=== PATIENT | male | born 1940 | race Caucasian/White ===

== ENCOUNTER 2020-01-08 13:08 | Emergency (ER) | payer MEDICARE, BC ==
[2020-01-08 13:30] VITALS: BP 130/69
--- NOTE | 2020-01-08 14:43 | ER Document Report ---
Entered by JACQUELINE ANTHONY SCRIBE 01/08/20 1348 Acting as scribe for:JERROD JEFFERS MD ED Head/Face/Scalp Injury - General Chief Complaint: Head Injury without LOC Stated Complaint: HEAD INJURY Time Seen by Provider: 01/08/20 13:35 Primary Care Provider: MICAELA PARRA MD [Primary Care Provider] - Follow up as needed Mode of Arrival: Ambulatory Information source: Patient Notes: This 79 year old male patient presents to the emergency department today with complaints of a hammer falling off a ladder, striking him on the top of the head. Patient states he was using the ladder and ran out of nails, he was climbing down to get more nails and the hammer fell approximately 4 to 5 feet before striking him in the top of the head. 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 He did not lose consciousness and has no symptoms but was concerned due to prior subarachnoid hemorrhage. TRAVEL OUTSIDE OF THE [place] IN LAST 30 DAYS: No - Related Data Allergies/Adverse Reactions: No Known Allergies Allergy (Verified 04/26/15 15:46) Past Medical History - General Information source: Patient - Social History Smoking Status: Never Smoker Cigarette use (# per day): No Frequency of alcohol use: None Drug Abuse: None Lives with: Family Family History: Reviewed & Not Pertinent Patient has homicidal ideation: No - Past Medical History Cardiac Medical History: Reports: Hx Hypercholesterolemia, Hx Hypertension Neurological Medical History: Reports: Hx Cerebrovascular Accident - Subarachnoid hemorrhage with INTERIOR WALL ASSEMBLER shunt placement for drainage Malignancy Medical History: Reports Hx Prostate Cancer Past Surgical History: Reports: Hx Neurologic Surgery - INTERIOR WALL ASSEMBLER shunt placement for subarachnoid hemorrhage, Hx Orthopedic Surgery - L ankle - Immunizations Hx Diphtheria, Pertussis, Tetanus Vaccination: Yes Review of Systems - Review of Systems Constitutional: No symptoms reported EENT: No symptoms reported Cardiovascular: No symptoms reported Respiratory: No symptoms reported Gastrointestinal: No symptoms reported Genitourinary: No symptoms reported Male Genitourinary: No symptoms reported Musculoskeletal: No symptoms reported Skin: No symptoms reported Hematologic/Lymphatic: No symptoms reported Neurological/Psychological: See HPI, Other - hit in the head with a hammer. denies: Lost consciousness -: Yes All other systems reviewed and negative Physical Exam - Vital signs Vitals: Temp Pulse Resp BP Pulse Ox 98.2 F 53 L 18 130/69 H 98 01/08/20 13:29 01/08/20 13:01/08/20 13:01/08/20 13:01/08/20 13:29 - Notes Notes: Physical Exam: General: Alert, appears well. HEENT: Normocephalic. PERRL. Extraocular movements intact. Oropharynx clear. Top front head just to the right of the midline there are superficial abrasions, contusion, and swelling over the area of where INTERIOR WALL ASSEMBLER shunt was placed. Neck: Supple. Non-tender. Respiratory: No respiratory distress. Clear and equal breath sounds bilaterally. Cardiovascular: Regular rate and rhythm. Abdominal: Normal Inspection. Non-tender. No distension. Normal Bowel Sounds. Back: No gross abnormalities. Extremities: Moves all four extremities. Upper extremities: Normal inspection. Normal ROM. Lower extremities: Normal inspection. No edema. Normal ROM. Neurological: Normal cognition. AAOx4. Normal speech. Psychological: Normal affect. Normal Mood. Skin: Warm. Dry. Normal color. Course - Re-evaluation Re-evalutation: 01/08/20 15:[address] findings with the patient and his spouse. He did request that I remove the sutures from his left index finger that were placed about 5 days ago if I thought it would be okay. The wound looks like it is healing nicely. I told him that if he would be willing to put some duct tape around the fingertip to protect it for a few more days then removing the sutures today would be okay. - Vital Signs Vital signs: Temp Pulse Resp BP Pulse Ox 98.2 F 53 L 18 130/69 H 98 01/08/20 13:29 01/08/20 13:29 01/08/20 13:01/08/20 13:01/08/20 13:29 - Diagnostic Test Radiology reviewed: Image reviewed, Reports reviewed - CT scan of the head shows stable chronic changes with that acute intracranial process. Stable position of a left parietal approach ventriculostomy catheter. No evidence of tubing discontinuity in the visualized portions. Discharge - Discharge Clinical Impression: Contusion of scalp Qualifiers: Encounter type: initial encounter Qualified Code(s): S00.03XA - Contusion of scalp, initial encounter Condition: Stable Disposition: HOME, SELF-CARE Additional Instructions: Abrasions An abrasion is a scraping injury of the skin. Some scarring may result. The seriousness of an abrasion is not always obvious at first. Hidden tissue damage may be present and infection may occur despite proper care. Complete healing may take from ten days to as long as a month. The healing time depends on the depth of the abrasion, and on the amount of crushing of unde rlying tissues from the injury. Keep the wound and dressing clean. Do not shower or bathe the area until okayed by the doctor. If the dressing gets wet, remove it and blot the wound dry, then reapply a clean dressing. Dressings should be changed every day. Sunscreen should be used for six months after the skin is healed. If any signs of infection occur (swelling, redness, increasing tenderness, red streaks, profuse purulent drainage from the abrasion, tender lumps in the armpit or groin above the abrasion, or fever), see the doctor immediately. Contusion Your injury has resulted in a contusion -- a crushing of the deep tissues. No injury to important structures was detected during the physician's exam. Contusions vary in the amount of pain they cause, and in the length of time required for healing. Typically, the area will become bruised, and will remain painful to touch for two or three weeks. However, most patients are back to working and playing within a few days. After the initial period of rest and cold-packs, your symptoms (together with the doctor's recommendations) will determine how rapidly you can get back to full activity. Usually this means "do what feels okay, but don't do things that hurt." If re-examination was recommended, it's important to follow up as instructed. Call the doctor or return any time if pain increases, if swelling becomes severe, if you develop numbness or weakness in an injured extremity, or if any other alarming symptoms occur. Referrals: MICAELA PARRA MD [Primary Care Provider] - Follow up as needed I personally performed the services described in the documentation, reviewed and edited the documentation which was dictated to the scribe in my presence, and it accurately records my words and actions.
--- NOTE | 2020-01-08 14:48 | RADIOLOGY REPORT (SQ) ---
EXAM DESCRIPTION: CT HEAD WITHOUT IMAGES COMPLETED DATE/TIME: 01/08/2020 2:14 pm REASON FOR STUDY: hammer fell onto head COMPARISON: 04/26/2015 TECHNIQUE: Axial images acquired through the brain without intravenous contrast. Images reviewed wi th bone, brain and subdural windows. Additional sagittal and coronal reconstructions were generated. Images stored on PACS. All CT scanners at this facility use dose modulation, iterative reconstruction, and/or weight based d osing when appropriate to reduce radiation dose to as low as reasonably achievable (ALARA). [facility]: Dose Right [facility]: CareDose [facility]: Dose Right [facility]: Teradose 4D [facility]: Smart [employer] RADIATION DOSE: CT Rad equipment meets quality standard of care and radiation dose reduction techniq ues were employed. CTDIvol: 53.2 mGy. DLP: 1070 mGy-cm.mGy. LIMITATIONS: None. FINDINGS: VENTRICLES: Prominent. There is a left parietal approach ventriculostomy catheter with ti p terminating in the right lateral ventricle. CEREBRUM: No masses. No hemorrhage. No midline shift. Areas of low density in the white matter mos t likely due to chronic micro-vascular ischemic change. No evidence for acute infarction. CEREBELLUM: No masses. No hemorrhage. No alteration of density. No evidence for acute infarction. EXTRAAXIAL SPACES: Age-related involutional change. Unchanged CSF attenuation within the left cerebe llar hemisphere, possibly arachnoid cyst versus prominent extra-axial space. No solid masses. ORBITS AND GLOBE: No intra- or extraconal masses. Normal contour of globe without masses. Bilateral cataract surgery. CALVARIUM: No fracture. Postsurgical change from left parietal approach ventriculostomy catheter. N o evidence of tubing discontinuity in the visualized portions. PARANASAL SINUSES: Mucosal thickening within the left maxillary sinus. Ethmoid air cell mucosal thic kening. Remaining sinuses are clear. SOFT TISSUES: No mass or hematoma. OTHER: No other significant finding. IMPRESSION: Stable chronic changes without evidence of acute intracranial process. Stable position of the left parietal approach ventriculostomy catheter. No evidence of tubing discon tinuity in the visualized portions. Stable ventricle size. EVIDENCE OF ACUTE STROKE: NO. TECHNICAL DOCUMENTATION: JOB ID: [id number] Quality ID # [id number]: Final reports with documentation of one or more dose reduction techniques (e.g., Au tomated exposure control, adjustment of the mA and/or kV according to patient size, use of iterative reconstruction technique) 2010 [employer]- All Rights Reserved Reading location - IP/workstation name: [email or web address]
== END 2020-01-08 15:21 | disposition home or self-care (01) ==
LOC: ER 13:08
DX: S00.03XA Contusion of scalp, initial encounter (principal); S00.01XA Abrasion of scalp, initial encounter; W20.8XXA Other cause of strike by thrown, projected or falling object, initial encounter; Y93.39 Activity, other involving climbing, rappelling and jumping off; Z98.2 Presence of cerebrospinal fluid drainage device; I10 Essential (primary) hypertension; Z85.46 Personal history of malignant neoplasm of prostate
CPT/HCPCS: 70450; 99284